=== PATIENT | male | born 1945 | race Caucasian/White ===

== ENCOUNTER 2022-02-11 06:35 | Inpatient (IN) | payer MEDICARE, OTHER ==
[~2022-02-11] VITALS: Ht 180.3 cm; Wt 76.2 kg
[2022-02-11 06:41] VITALS: BP 139/78
--- NOTE | 2022-02-11 07:17 | NUR ---
Received patient resting in low-fowlers position with traffic monitor specialist in place. 76 y/o M MICHELLE from [facility] for left hip pain. Pt A&Ox4, nonambulatory, states left femur sx s/p fall, received surgery at [facility]. Pt states repeat XRAY completed yesterday showing "re-fracture of left femur." Pt denies pain at this time; reports [place] at 0530. Pain 10/10 with left hip movement. Pt states he normally ambulates with walker, however, recently has had increased pain with ambulating. teletypesetter monitor in place. Bed locked in lowest position, side rails x 2 for pt safety. [place] provided. PMH: HTN, DM2 Meds: metformin, insulin, enoxaparin, colace NKDA Sx: L femur sx
[2022-02-11] MEDS ORDERED: IBUPROFEN 600 MG TAB PO ONE (08:55)
--- NOTE | 2022-02-11 08:58 | NUR ---
Pt to CT via [facility].
--- NOTE | 2022-02-11 09:10 | NUR ---
Pt returned from CT and placed back onto shoe worker.
--- NOTE | 2022-02-11 09:24 | NUR ---
Lab at bedside
--- NOTE | 2022-02-11 09:24 | NUR ---
Pain remains 0/10 at rest. All pt needs met. compliance monitor remains in place.
[2022-02-11 09:42] LABS: BASOPHILS % (AUTO) 0.6 % (0.0-2.0); EOSINOPHILS # (AUTO) 0.3 K/uL (0-0.4); EOSINOPHILS % (AUTO) 5.9 % (0.0-4.0); HEMATOCRIT 35.8 % (36-52); HEMOGLOBIN 11.8 g/dL (12.0-18.0); LYMPHOCYTES # (AUTO) 0.9 K/uL (2.0-11.5); LYMPHOCYTES % (AUTO) 15.3 % (20.5-51.1); MEAN CORPUSCULAR HEMOGLOBIN 30 pg (27-31); MEAN CORPUSCULAR HGB CONC 33 g/dL (33-37); MEAN CORPUSCULAR VOLUME 89.7 fL (80-94); MONOCYTES # (AUTO) 0.6 K/uL (0.8-1.0); MONOCYTES % (AUTO) 10.2 % (1.7-9.3); NEUTROPHILS # (AUTO) 3.9 K/uL (1.8-7.7); PLATELET COUNT (AUTO) 200 K/uL (140-450); RED BLOOD CELL COUNT(AUTO) 3.99 MIL/uL (4.20-6.10); RED CELL DISTRIBUTION WIDTH 14.6 % (11.6-13.7); WHITE BLOOD COUNT (AUTO) 5.7 K/uL (4.8-10.8)
--- NOTE | 2022-02-11 10:22 | NUR ---
Patient transferred from bed 11 to bed 03. Placed back onto budget engineer.
[2022-02-11] MEDS ORDERED: LOV40I SUBQ (10:30)
[2022-02-11] MEDS ORDERED: INSU100S5 IJ (10:30)
[2022-02-11] MEDS ORDERED: DOCU-299 PO (10:30)
[2022-02-11] MEDS ORDERED: METF-1139 PO (10:32)
[2022-02-11] MEDS ORDERED: ACET-9527 PO (10:32)
[2022-02-11] MEDS ORDERED: VIT1CAPS9 PO (10:32)
[2022-02-11 10:42] LABS: ALBUMIN 2.8 g/dL (3.4-5.0); ANION GAP 9.9 (8-16); ASPARTATE AMINOTRANSFERASE 15 U/L (15-37); CARBON DIOXIDE 27.6 mmol/L (21-32); CHLORIDE 104 mmol/L (98-107); CREATININE 0.8 mg/dL (0.6-1.3); GLUCOSE 142 mg/dL (74-106); POTASSIUM 4.5 mmol/L (3.5-5.1); SODIUM SERUM 137 mmol/L (136-145); TOTAL BILIRUBIN 1.8 mg/dL (0.0-1.0); UREA NITROGEN, BLOOD 13 mg/dL (7-18)
--- NOTE | 2022-02-11 11:25 | NUR ---
Condom catheter in place. Patient encouraged to void.
[2022-02-11] MEDS ORDERED: ACETAMINOPHEN 325 MG TAB PO PRN (11:45)
--- NOTE | 2022-02-11 13:15 | NUR ---
Pt resting in low-fowlers position. child monitor in place. HR 55; no medical complaint at this time. Pain 0/10 at this time. All pt needs met. Bed locked in lowest position, side rails 1.
[2022-02-11] MEDS ORDERED: MAGNESIUM OXIDE 400 MG TAB PO PRN (13:50)
[2022-02-11] MEDS ORDERED: KCL 20 MEQ/WATER INJ PREMIX 200 ML IV PRN (13:50)
[2022-02-11] MEDS ORDERED: MAG SULF 2000 MG/WATER PREMIX 50 ML IV PRN (13:50)
[2022-02-11] MEDS ORDERED: POTASSIUM CHLORIDE 10 MEQ TABER PO PRN (13:50)
[2022-02-11] MEDS ORDERED: DEXTROSE 50% 50 ML SYR IVP PRN (13:50)
--- NOTE | 2022-02-11 14:06 | NUR ---
Patient will be admitted to care of Dr. Winchester. Admited to M/S. Will go to room 119B. Belongings list completed. Report to MARK Zambrano.
--- NOTE | 2022-02-11 15:15 | NUR ---
patient received from the emergency room at this time. alert and awake;respirations unlabored.patient left hip incison clean,dry,and intact.patient in no distress.
[2022-02-11 16:00] VITALS: BP 121/65
[2022-02-11] MEDS: BLOOD GLUCOSE MONITORING 1 DEV DEV FS SCH ×2 (16:40→21:00)
[2022-02-11] MEDS: INSULIN LISPRO SLIDING SCALE 100 UNITS/ML VIAL SUBQ PRN (16:42)
[2022-02-11] MEDS: HYDROcodone/APAP 5/325 MG 1 TAB TAB PO PRN (17:50)
[2022-02-11 20:00] VITALS: BP 125/57
--- NOTE | 2022-02-11 20:00 | NUR ---
2000: REC'D PT FROM AM RN TO ASSUME PLAN OF CARE. PT'S A/OX4, DENIES PAIN, ON ROOM AIR SATS >95%, CALM AND QUIET. REORIENTED TO UNIT, & SURROUNDINGS. STABLE VITAL SIGNS. POC DISCUSSED. INSTRUCTED TO CALL IF NEEDS HELP. CALL LIGHT IN REACH. SHIFT ASSESSMENT DONE. 2200: PM CARE RENDERED. ABLE TO PULL SELF UP, BUT GEN WEAKNESS IS NOTED DUE TO HIP PROBLEM.PT SAID HE HAD HIP SURGERY/REPLACEMENT 3 WKS AGO FROM OTHER HOSPITAL. CAME HERE FOR HIP PROBLEM THINKING MAYBE DISLOCATION. WILL F/U WITH MD IN AM. 0000: SLEEPING ON AND OFF. USED URINAL, INSTRUCTED TO CALL IF NEEDS HELP. CALL LIGHT IN REACH. ENCOURAGED TO TURN Q2 HRS OR WHILE AWAKE. 0200: SLEEPING COMFORTABLY. CALL LIGHT IN REACH. CONTINUE MONITOR.
[2022-02-12] VITALS: BP 118/65
[2022-02-12 04:00] VITALS: BP 112/68
[2022-02-12] MEDS: HYDROcodone/APAP 5/325 MG 1 TAB TAB PO PRN ×2 (04:37→17:24)
[2022-02-12] MEDS: INSULIN LISPRO SLIDING SCALE 100 UNITS/ML VIAL SUBQ PRN ×4 (05:43→21:41)
[2022-02-12] MEDS: BLOOD GLUCOSE MONITORING 1 DEV DEV FS SCH ×4 (05:45→21:37)
--- NOTE | 2022-02-12 07:30 | NUR ---
ENDORSED PT TO RN SIGGY TO ASSUME PLAN O CARE.
[2022-02-12 07:55] LABS: ANION GAP 14.1 (8-16); CARBON DIOXIDE 24.9 mmol/L (21-32); CHLORIDE 106 mmol/L (98-107); CREATININE 0.7 mg/dL (0.6-1.3); GLUCOSE 149 mg/dL (74-106); SODIUM SERUM 141 mmol/L (136-145); UREA NITROGEN, BLOOD 15 mg/dL (7-18)
[2022-02-12 08:00] VITALS: BP 133/63
[2022-02-12 08:01] LABS: PHOSPHORUS 3.9 mg/dL (2.5-4.9)
[2022-02-12] MEDS: DOCUSATE SODIUM 100 MG GELCAP PO SCH (09:21)
[2022-02-12] MEDS: ENOXAPARIN 40 MG/0.4 ML SYR SUBQ SCH (09:25)
[2022-02-12 16:00] VITALS: BP 130/64
--- NOTE | 2022-02-12 19:30 | NUR ---
RECEIVED REPORT FROM DAY SHIFT NURSE SIGGY FOR CONTINUITY OF CARE. PATIENT IS A&O X4. PATIENT IS ON ROOM AIR, BREATHING IS NORMAL WITH SYMMETRICAL RISE AND FALL OF CHEST. IV IS A 20G IN THE LEFT HAND. PATIENT IS LYING IN BED SEMI FOWLERS POSITION. BED IS IN LOWEST POSITION, WHEELS LOCKED, CALL LIGHT IN PLACE. WILL CONTINUE TO OBSERVE PATIENT.
[2022-02-12 20:00] VITALS: BP 112/62
--- NOTE | 2022-02-12 21:50 | NUR ---
CHECKED PATIENT'S BLOOD SUGAR. BLOOD SUGAR WAS 207, GAVE PATIENT 4 UNITS OF HUMALOG FOR COVERAGE. PATIENT THANKED ME AND ASKED ME TO GYM MANAGER THE LIGHT. PATIENT IS NOT RUNNING ANY FLUIDS (SALINE LOCKED). WILL CONTINUE TO OBSERVE PATIENT.
--- NOTE | 2022-02-12 21:50 | NUR ---
EMPTIED 120 ML OF URINE FROM URINAL.
--- NOTE | 2022-02-13 00:50 | NUR ---
PATIENT WOKE UP AND CALLED REQUESTING A CUP OF OJ. GAVE PATIENT A CUP OF OJ. PATIENT THANKED ME. ASSISTED PATIENT IN DRINKING OJ. PATIENT THEN LAID DOWN TO GO BACK BACK TO SLEEP. WILL CONTINUE TO OBSERVE PATIENT.
--- NOTE | 2022-02-13 02:30 | NUR ---
LOOKED IN ON PATIENT. PATIENT WAS SLEEPING, LYING SUPINE. BREATHING WAS NORMAL WITH SYMMETRICAL RISE AND FALL OF CHEST. WILL CONTINUE TO OBSERVE PATIENT.
[2022-02-13 04:00] VITALS: BP 116/70
--- NOTE | 2022-02-13 04:30 | NUR ---
LOOKED IN ON PATIENT. PATIENT WAS SLEEPING. BREATHING WAS NORMAL WITH SYMMETRICAL RISE AND FALL OF CHEST. WILL CONTINUE TO OBSERVE PATIENT.
[2022-02-13] MEDS: ERGOCALCIFEROL 50,000 IU SGL PO SCH ×2 (06:00→08:50)
[2022-02-13 06:28] LABS: ANION GAP 12.8 (8-16); CARBON DIOXIDE 25.9 mmol/L (21-32); CHLORIDE 106 mmol/L (98-107); CREATININE 0.8 mg/dL (0.6-1.3); GLUCOSE 174 mg/dL (74-106); POTASSIUM 3.7 mmol/L (3.5-5.1); SODIUM SERUM 141 mmol/L (136-145); UREA NITROGEN, BLOOD 13 mg/dL (7-18)
[2022-02-13] MEDS: MORPHINE SULFATE 4 MG/ML SYR IVP PRN (06:33)
--- NOTE | 2022-02-13 06:45 | NUR ---
PATIENT CALLED AND REQUESTED PAIN MEDICATION FOR 7/10 PAIN. PATIENT'S VITALS WERE WITHIN NORMAL LIMITS. CHECKED PATIENT'S CHART, MORPHINE WAS APPROPRIATE TO GIVE. ADMINISTERED MORPHINE ORDERED. PATIENT TOLERATED WELL. WAS UNABLE TO GIVE VITAMIN D MEDICATION TO PATIENT, MEDICATION WAS NOT AVAILABLE ON THE UNIT.
--- NOTE | 2022-02-13 06:45 | NUR ---
EMPTIED 120ML OF URINE FROM URINAL.
[2022-02-13 06:46] LABS: MAGNESIUM 2.1 mg/dL (1.8-2.4); PHOSPHORUS 3.3 mg/dL (2.5-4.9)
[2022-02-13] MEDS: BLOOD GLUCOSE MONITORING 1 DEV DEV FS SCH ×4 (07:20→20:50)
[2022-02-13] MEDS: INSULIN LISPRO SLIDING SCALE 100 UNITS/ML VIAL SUBQ PRN ×4 (07:22→20:58)
--- NOTE | 2022-02-13 07:30 | NUR ---
BS WAS 198, GAVE PATIENT 2 UNITS OF INSULIN. PATIENT TOLERATED WELL. REASSESSED PATIENT FROM MORPHINE INJECTION. PATIENT STATED THAT HE WAS FEELING OKAY, AND THAT HIS PAIN HAS REDUCED. WILL ENDORSE CARE TO DAY SHIFT NURSE.
--- NOTE | 2022-02-13 07:45 | NUR ---
ENDORSED TO DAY SHIFT NURSE SIGGY FOR CONTINUITY OF CARE. PATIENT IS STABLE.
[2022-02-13 08:00] VITALS: BP 137/67
[2022-02-13] MEDS: DOCUSATE SODIUM 100 MG GELCAP PO SCH (08:27)
[2022-02-13] MEDS: ENOXAPARIN 40 MG/0.4 ML SYR SUBQ SCH (08:31)
--- NOTE | 2022-02-13 10:23 | NUR ---
PATIENT HAS BEEN SCREENED AND CATEGORIZED MODERATE NUTRITION RISK. PATIENT WILL BE SEEN WITHIN 3-5 DAYS OF ADMISSION. 02/11/22-02/16/[address]
[2022-02-13] MEDS: HYDROcodone/APAP 5/325 MG 1 TAB TAB PO PRN ×2 (14:26→20:40)
[2022-02-13 16:00] VITALS: BP 117/69
--- NOTE | 2022-02-13 19:30 | NUR ---
RECEIVED REPORT FROM DAY SHIFT NURSE SIGGY FOR CONTINUITY OF CARE. PATIENT IS A&O X 4. PATIENT IS ON ROOM AIR, BREATHING IS NORMAL WITH SYMMETRICAL RISE AND FALL OF CHEST. IV IS A 20G IN THE LEFT HAND, NO FLUIDS RUNNING AT THIS TIME (SALINE LOCKED). EMPTIED PATIENT'S URINAL; EMPTIED 120 ML. PATIENT IS SITTING UP IN BED IN HIGH-FOWLERS POSITION. PATIENT'S DEMEANOR IS PLEASANT, GREETING ME WHEN I INTRODUCED MYSELF. BED IS IN LOWEST POSITION, WHEELS LOCKED, CALL LIGHT IN PLACE. WILL CONTINUE TO OBSERVE PATIENT.
[2022-02-13 20:00] VITALS: BP 126/81
--- NOTE | 2022-02-13 21:00 | NUR ---
PATIENT CALLED AND REQUESTED [facility] FOR 6/10 PAIN AND ASKED IF HE COULD HAVE SOMETHING TO BATH HIMSELF WITH. CHECKED PATIENT'S CHART AND VITALS, [facility] WAS APPROPRIATE TO GIVE. ADMINISTERED MEDICATION, PATIENT TOLERATED WELL. SUPPLIED PATIENT WITH WASHCLOTHS, NON-RINSE CLEANING SPRAY, TOWEL, AND A NEW GOWN. OBTAINED PATIENT'S BS; BS WAS 190. PATIENT BATHED HIMSELF WHILE I PREPARED THE INSULIN. ADMINISTERED 6 UNITS OF HUMALOG FOR COVERAGE. PATIENT FINISHED BATHING HIMSELF; ASSISTED PATIENT WITH PUTTING ON NEW GOWN. DISPOSED OF DIRTY TOWELS AND GOWN IN LAUNDRY. PATIENT ASKED TO BE LOWERED TO SUPINE TO GET SOME SLEEP. LOWERED PATIENT AND TURNED OUT THE LIGHT UPON LEAVING THE ROOM. WILL CONTINUE TO OBSERVE PATIENT.
--- NOTE | 2022-02-13 22:00 | NUR ---
LOOKED IN ON PATIENT TO REASSESS PAIN. PATIENT WAS LYING SUPINE IN BED SLEEPING. MEDICATION WAS EFFECTIVE IN PROVIDING COMFORT TO PATIENT. BREATHING WAS NORMAL WITH SYMMETRICAL RISE AND FALL WITH CHEST. WILL CONTINUE TO OBSERVE PATIENT.
--- NOTE | 2022-02-13 23:30 | NUR ---
LOOKED IN ON PATIENT. PATIENT WAS LYING SUPINE, SLEEPING. PATIENT'S BREATHING WAS NORMAL WITH SYMMETRICAL RISE AND FALL OF CHEST. NO FLUIDS ARE RUNNING AT THIS TIME. WILL CONTINUE TO OBSERVE PATIENT.
--- NOTE | 2022-02-14 02:30 | NUR ---
LOOKED IN ON PATIENT. PATIENT WAS SLEEPING, BREATHING WAS NORMAL WITH SYMMETRICAL RISE AND FALL OF CHEST. CHECKED PATIENT'S SCAR ON LEFT LEG. SCAR IS FROM SURGERY THAT PATIENT HAD 3-4WEEKS AGO (TIMEFRAME WAS PROVIDED BY PATIENT EARLIER). SCAR IS INTACT. PATIENT WOKE UP WHILE CHECKING IV IN LEFT HAND. PATIENT STATED "CAN YOU PLEASE JUST LET ME SLEEP." I APOLOGIZED TO PATIENT AND INFORMED HIM THAT I JUST NEEDED TO CHECK HIS LEG AND IV SITE. PATIENT WENT BACK TO SLEEP. IV SITE WAS STILL INTACT. AFTER CHECKING IV, QUIETLY LEFT THE ROOM. WILL CONTINUE TO OBSERVE PATIENT.
[2022-02-14 04:00] VITALS: BP 111/62
--- NOTE | 2022-02-14 04:20 | NUR ---
OBTAINED PATIENT'S 0400 VITALS. PATIENT WAS SLEEPING UPON ENTERING THE ROOM. VITALS WERE: BP 111/62, HR 62, O2 97, RR 16, TEMP 97.5. AFTER OBTAINING VITALS PATIENT WENT BACK TO SLEEP. BREATHING WAS NORMAL WITH SYMMETRICAL RISE AND FALL OF CHEST. BED WAS IN LOWEST POSITION, WHEELS LOCKED, CALL LIGHT IN PLACE. WILL CONTINUE TO OBSERVE PATIENT.
[2022-02-14] MEDS: INSULIN LISPRO SLIDING SCALE 100 UNITS/ML VIAL SUBQ PRN ×4 (06:30→21:00)
[2022-02-14] MEDS: BLOOD GLUCOSE MONITORING 1 DEV DEV FS SCH ×4 (06:30→20:58)
[2022-02-14] MEDS: HYDROcodone/APAP 5/325 MG 1 TAB TAB PO PRN (06:39)
--- NOTE | 2022-02-14 06:45 | NUR ---
EMPTIED 120 ML OF URINE FROM URINAL.
--- NOTE | 2022-02-14 06:45 | NUR ---
OBTAINED BS; BS WAS 166, 2 UNITS OF HUMALOG WAS GIVEN. PATIENT REQUESTED PAIN MEDICATION FOR 6/10 PAIN. CHECKED PATIENT'S VITALS, BP: 129/64, HR: 65, O2: 96. CHECKED CHART, NORCO WAS APPROPRIATE TO GIVE. PATIENT TOLERATED MEDICATION WELL. BREATHING WAS NORMAL WITH SYMMETRICAL RISE AND FALL OF CHEST. WILL CONTINUE TO OBSERVE PATIENT.
[2022-02-14 06:55] LABS: ANION GAP 14.4 (8-16); CARBON DIOXIDE 23.7 mmol/L (21-32); CHLORIDE 105 mmol/L (98-107); CREATININE 0.7 mg/dL (0.6-1.3); GLUCOSE 173 mg/dL (74-106); POTASSIUM 4.1 mmol/L (3.5-5.1); SODIUM SERUM 139 mmol/L (136-145); UREA NITROGEN, BLOOD 12 mg/dL (7-18)
[2022-02-14] MEDS ORDERED: Z-GUARD PASTE TP PRN (07:00)
[2022-02-14 07:02] LABS: PHOSPHORUS 3.8 mg/dL (2.5-4.9)
--- NOTE | 2022-02-14 07:45 | NUR ---
ENDORSED TO DAY SHIFT NURSE JESSICA FOR CONTINUITY OF CARE. PATIENT IS STABLE.
[2022-02-14 08:00] VITALS: BP 136/63
[2022-02-14] MEDS: ENOXAPARIN 40 MG/0.4 ML SYR SUBQ SCH (09:00)
[2022-02-14] MEDS: DOCUSATE SODIUM 100 MG GELCAP PO SCH (10:07)
--- NOTE | 2022-02-14 11:27 | NUR ---
P.T. NOTES P.T. EVAL COMPLETED; REFER TO EVAL FOR DETAILS.
--- NOTE | 2022-02-14 14:08 | NUR ---
02/14/2022 RD INITIAL ASSESSMENT COMPLETED. PLEASE REFER TO NUTRITION ASSESSMENT UNDER CARE ACTIVITY FOR ESTIMATED NUTRITIONAL NEEDS. 1.CONTINUE WITH CCHO 60 GRAMS DIET 2.MONITOR BLOOD GLUCOSE 3.RD TO FOLLOW-UP IN 5-7 DAYS PATIENT IS LOW RISK. TU VERDUZCO, RD
[2022-02-14] MEDS ORDERED: ONDA-188 PO (14:18)
[2022-02-14] MEDS ORDERED: HYDR-5080 PO (14:19)
[2022-02-14] MEDS: MORPHINE SULFATE 4 MG/ML SYR IVP PRN (14:41)
[2022-02-14] MEDS: ONDANSETRON 4 MG/2 ML VIAL IVP PRN (14:42)
--- NOTE | 2022-02-14 15:48 | NUR ---
DC PLANNING SW MET WITH PATIENT AT BEDSIDE TO COMPLETE ASSESSMENT. PATIENT REPORTS RECENT ADMISSION TO SNF FACILITY FOR REHAB SERVICE DUE TO A FALL THAT OCCURRED 3-4 WEEKS AGO, HOWEVER, REPORTS HE TYPICALLY RESIDES AT HOME ALONE AT THE ADDRESS LISTED ON FILE. PATIENT IDENTIFIED LANG LEWIS (SISTER) [phone], DOC SHELBY (BROTHER) [phone], AND FLO CHUN (COUSIN) [phone] EMERGENCY CONTACTS. PATIENT DENIED HAVING AD IN PLACE AND DECLINED AD OFFERED BY SW. PATIENT REPORTS MEETING WITH PCP, DR. PALMA, NEEDED, LAST VISIT; 2-3 MONTHS AGO. PATIENT REPORTS MEDICATION COMPLIANCE AND DENIES BARRIERS IN ACCESS TO NEEDED MEDICATION. PATIENT REPORTS PICKING UP MEDICATION FROM [facility] [address]/ [place] IN [place], WHEN NEEDED. PATIENT REPORTS THAT PREVIOUS TO HIS FALL THAT OCCURRED 3-4 WEEKS AGO, HE WAS AMBULATORY AND COMPLETED ALL ADL'S INDEPENDENTLY. PATIENT REPORTS BEING ADMITTED FROM SNF HOWEVER STRUGGLED TO RECALL NAME OF FACILITY. PATIENT REPORTS RECEIVING PT AND UTILIZES SNF'S FWW AND WC, WHEN NEEDED. PATIENT REPORTS HX OF DIABETES AND REPORTS DIABETES IS WELL MANAGED. PT DENIES MH/SA HX. PATIENT REPORTS DC PLAN IS TO RETURN TO SNF FACILITY WHEN MEDICALLY STABLE. SW INQUIRED ON RESOURCES NEEDED, PATIENT DECLINED.
[2022-02-14 16:00] VITALS: BP 128/65
--- NOTE | 2022-02-14 19:30 | NUR ---
RECEIVED REPORT FROM MORNING SHIFT NURSE FOR CONTINUITY OF CARE. PATIENT SLEEPING. NO S/S OF RESPIRATORY DISTRESS. ON ROOM AIR. ALL SAFETY PRECAUTIONS ARE IN PLACE. CALL LIGHT WITHIN REACH. WILL CONTINUE TO MONITOR.
--- NOTE | 2022-02-14 20:58 | NUR ---
BLOOD SUGAR CHECKED WAS 196. HUMALOG INSULIN 2 UNITS ADMINISTERED ORDERED PER SLIDING SCALE.
--- NOTE | 2022-02-14 23:00 | NUR ---
ROUNDED PATIENT. PT SLEEPING, BREATHING NORMAL WITH SYMMETRICAL RISE AND FALL OF THE CHEST. CALL LIGHT WITHIN REACH.
[2022-02-15] MEDS: BLOOD GLUCOSE MONITORING 1 DEV DEV FS SCH ×4 (06:32→20:37)
--- NOTE | 2022-02-15 06:32 | NUR ---
BLOOD SUGAR WAS 222. HUMALOG INSULIN ADMINISTERED ORDERED PER SLIDING SCALE.
[2022-02-15] MEDS: INSULIN LISPRO SLIDING SCALE 100 UNITS/ML VIAL SUBQ PRN ×2 (06:33→20:38)
[2022-02-15 06:53] LABS: MAGNESIUM 1.8 mg/dL (1.8-2.4); PHOSPHORUS 3.7 mg/dL (2.5-4.9)
[2022-02-15 07:13] LABS: ANION GAP 14.6 (8-16); CARBON DIOXIDE 23.7 mmol/L (21-32); CHLORIDE 101 mmol/L (98-107); CREATININE 0.8 mg/dL (0.6-1.3); GLUCOSE 207 mg/dL (74-106); POTASSIUM 4.3 mmol/L (3.5-5.1); SODIUM SERUM 135 mmol/L (136-145); UREA NITROGEN, BLOOD 12 mg/dL (7-18)
--- NOTE | 2022-02-15 07:23 | NUR ---
PATIENT STABLE. ENDORSED TO DAY SHIFT NURSE FOR CONTINUITY OF CARE.
[2022-02-15 08:00] VITALS: BP 118/63
[2022-02-15] MEDS: DOCUSATE SODIUM 100 MG GELCAP PO SCH (08:57)
[2022-02-15] MEDS: ENOXAPARIN 40 MG/0.4 ML SYR SUBQ SCH (08:58)
[2022-02-15] MEDS: MORPHINE SULFATE 4 MG/ML SYR IVP PRN (09:00)
[2022-02-15] MEDS: ONDANSETRON 4 MG/2 ML VIAL IVP PRN (09:01)
[2022-02-15] MEDS: HYDROcodone/APAP 5/325 MG 1 TAB TAB PO PRN ×2 (09:59→20:27)
--- NOTE | 2022-02-15 17:20 | NUR ---
PT CURRENTLY REFUSING BLOOD SUGAR MGT. PT NOT COOPERATIVE AND FRUSTRATED WITH WAIT FOR LEFT LEG BRACE B/C HE WON'T BE ABLE TO LEAVE SAFELY UNTIL IT ARRIVES AND HE IS FITTED PROPERLY.
--- NOTE | 2022-02-15 19:35 | NUR ---
RECEIVED REPORT FROM DAY SHIFT NURSE JESSICA. PATIENT WELL RESTED NO DISTRESS NOTED. RESPIRATION EVEN UNLABORED. SAFETY MEASURES IN PLACE. HEAD OF BED ELEVATED. WHEELS OF BED LOCKED. NO IV ACCESS.
--- NOTE | 2022-02-15 20:27 | NUR ---
PATIENT COMPLAINED OF MODERATE HIP PAIN, MEDICATED.
[2022-02-16] VITALS: BP 128/58
--- NOTE | 2022-02-16 01:46 | NUR ---
MADE ROUNDS PATIENT SLEEPING. NO DISTRESS NOTED. RESPIRATION EVEN UNLABORED. CALL LIGHT WITHIN REACH.
[2022-02-16 06:00] LABS: MAGNESIUM 1.9 mg/dL (1.8-2.4); PHOSPHORUS 3.6 mg/dL (2.5-4.9)
[2022-02-16 06:07] LABS: ANION GAP 9.9 (8-16); CARBON DIOXIDE 26.8 mmol/L (21-32); CHLORIDE 101 mmol/L (98-107); CREATININE 0.8 mg/dL (0.6-1.3); GLUCOSE 245 mg/dL (74-106); POTASSIUM 3.7 mmol/L (3.5-5.1); SODIUM SERUM 134 mmol/L (136-145); UREA NITROGEN, BLOOD 17 mg/dL (7-18)
[2022-02-16] MEDS: BLOOD GLUCOSE MONITORING 1 DEV DEV FS SCH ×3 (06:33→16:47)
--- NOTE | 2022-02-16 06:33 | NUR ---
BLOOD SUGAR CHECK WAS 201 , HUMALOG INSULIN ADMINISTERED ORDERED PER SLIDING SCALE.
[2022-02-16] MEDS: INSULIN LISPRO SLIDING SCALE 100 UNITS/ML VIAL SUBQ PRN ×3 (06:34→16:49)
--- NOTE | 2022-02-16 07:23 | NUR ---
PATIENT STABLE. ENDORSED TO DAY SHIFT NURSE FOR CONTINUITY OF CARE.
--- NOTE | 2022-02-16 07:25 | NUR ---
RECEIVED REPORT FROM MARKETING TRAINEE NURSE FOR CONTINUITY OF CARE. PATIENT ASLEEP NO DISTRESS NOTED ON ROOM AIR. NO IV SITE . ALL SAFETY MEASURE IN PLACE.
[2022-02-16 08:00] VITALS: BP 128/55
--- NOTE | 2022-02-16 08:43 | NUR ---
DR. OWENS AT BED SIDE.
[2022-02-16] MEDS ORDERED: LACTULOSE 20 GM/30 ML UDC PO PRN (08:45)
--- NOTE | 2022-02-16 08:47 | NUR ---
INFORM DR. OWENS THAT PATIENT CAN'T REMEMBER WHEN HE HAD BOWEL MOVEMENT AND ON DSS 100 MG ONLY AND HE ORDER LACTULOSE 10 GRMS BID PRN ORDER NOTED AND CARRIED OUT RESIDENT AWARE.
[2022-02-16] MEDS: HYDROcodone/APAP 5/325 MG 1 TAB TAB PO PRN ×2 (08:52→17:03)
[2022-02-16] MEDS: DOCUSATE SODIUM 100 MG GELCAP PO SCH (08:53)
[2022-02-16] MEDS: ENOXAPARIN 40 MG/0.4 ML SYR SUBQ SCH ×2 (08:54→09:00)
--- NOTE | 2022-02-16 09:07 | NUR ---
PATIENT ALERT ABLE TO MAKE NEEDS KNOWN. REFUSED HIS LOVENOX AND REQUESTED FOR [facility]CO FOR COMPLAIN OF LEFT HIP PAIN . MEDICATED REQUEST.
--- NOTE | 2022-02-16 10:30 | NUR ---
TEXTURING MACHINE FIXER ASSISTED PATIENT FOR AM CARE.
--- NOTE | 2022-02-16 11:30 | NUR ---
PATIENT SITTING ON CHAIR TOLERATED WELL. BLOOD SUGAR CHECKED GIVEN INSULIN COVERAGE FOR BLOOD SUGAR 292 TOLERATED WELL. DENIES PAIN AT THIS TIME.
--- NOTE | 2022-02-16 12:09 | NUR ---
PATIENT BRACE DELIVERED AND FIT AND ADJUSTED THE BRACE FOR HIM.
--- NOTE | 2022-02-16 13:41 | NUR ---
DC PLANNING: [facility] TO GIVE REPORT [phone] ARRANGED TRANSPORT WITH [facility] UPTIME 6:30 PM. NOTIFIED DENA WILSON CM TO FOLLOW
--- NOTE | 2022-02-16 13:45 | NUR ---
OFFERED LACTULOSE DUE TO CONSTIPATION BUT PATIENT REFUSED STATED DUE TO THE DISCHARGE HE DOESN'T WANT TO TAKE NOW AND I'LL JUST TAKE IT WHEN I GO TO THE ASSISTED.
--- NOTE | 2022-02-16 14:06 | NUR ---
GAVE REPORT TO NURSE ART AT [facility] FOR CONTINUITY OF CARE.
--- NOTE | 2022-02-16 14:23 | NUR ---
I CALLED DEBBIE THE SISTER OF THE PATIENT INFORM OF TRANSFER TO THE [facility] AND SHE SO HAPPY TO HEAR THAT.
--- NOTE | 2022-02-16 15:30 | NUR ---
DISCHARGE PACKET GIVEN TO PATIENT WITH INSTRUCTION VERBALIZED UNDERSTANDING. PATIENT SIGN AND SISTER COOKIE AWARE OF TRANSFER.
[2022-02-16 16:00] VITALS: BP 122/60
--- NOTE | 2022-02-16 16:53 | NUR ---
PATIENT ALERT ON STABLE CONDITION GIVEN 6 UNITS OF INSULIN FOR BLOOD SUGAR 272.
--- NOTE | 2022-02-16 17:04 | NUR ---
COMPLAIN OF HIP PAIN MEDICATED ORDERED .
--- NOTE | 2022-02-16 18:38 | NUR ---
[facility] [employer] [facility] TRANSPORTATION TEACHER CCLC PATIENT ON STABLE CONDITION. ALL BELONGING AND DISCHARGE PACKET GIVEN. PATIENT ON A GURNEY WHEELED BY TRANSPORTATION STAFF. NAME BAND REMOVED NO IV SITE.
== END 2022-02-16 18:40 | DRG 544 ==
LOC: MED 06:35 → MTU 11:43 → UNDOADMOB 11:43 → OBSVTOIN 11:44 → MTU 14:49 → OBSVTOIN 02-14 09:01 → INTOOBSV 02-14 09:01
PROVIDERS: ADMIT Hospitalist; ATTEND Orthopaedic Surgery
DX: M84.459A Pathological fracture, hip, unspecified, initial encounter for fracture (principal); E11.9 Type 2 diabetes mellitus without complications; I10 Essential (primary) hypertension; Z20.822 Contact with and (suspected) exposure to COVID-19; Z79.891 Long term (current) use of opiate analgesic; Z79.899 Other long term (current) drug therapy; Z79.4 Long term (current) use of insulin
CPT/HCPCS: 36415; 72131; 72192; 73502; 80048; 80053; 82948; 83735; 84100; 85025; 85651; 86140; 87081; 97112; 97116; 97163-GP; 97530; J1650; J1815; J2270; J2405